=== PATIENT | male | born 1955 | race Caucasian/White ===

== ENCOUNTER 2016-06-11 07:37 | Day surgery (SDC) | payer OTHER ==
[~2016-06-11] VITALS: Ht 167.6 cm; Wt 90.0 kg
[2016-06-11] MEDS ORDERED: 0.9% Sodium Chloride 1,000 ML IV PRN (07:51)
[2016-06-11] MEDS ORDERED: Sodium Chloride LOK Flush 10 mL Syringe IV PRN (07:55)
[2016-06-11] MEDS ORDERED: fentaNYL-PF 50 mCg/mL 2 mL Inj IVPUSH PRN (07:55)
[2016-06-11] MEDS ORDERED: DEXT10TA23 PO (08:02)
[2016-06-11 08:04] VITALS: BP 117/77; PULSE 69; RESP 14
--- NOTE | 2016-06-11 09:17 | PCM.ENDCOL ---
Colonoscopy Date of Service: Jun 11, 2016 Physician Gianluca Fairbanks MD Indication for Procedure Personal history of colon polyps screening Post Procedure Dx & Findings: Polyp diverticulitis hemorrhoids Procedure Colonoscopy Prep adequate Withdrawal 15 minutes PROCEDURE IN DETAIL: After unremarkable rectal examination Olympus video colonoscope was inserted into patient's anal canal was advanced to cecum. Landmarks were identified including views of the valve and appendiceal orifice. Scope was withdrawn systematically. The mucosa of the cecum, ascending, transverse, descending, sigmoid, rectal mucosa lined with whitish, pink, smooth, glistening, normal-appearing mucosa, normal fine branching, underlying vascularity, normal haustra. The patient tolerated procedure and was transported to observation area. In the descending colon there were total 4 polyps. One was 1.5 cm which was resected completely using hot snare. Hemoclip deployed at the base due to mild oozing after the polypectomy. Complete hemostasis achieved. There were 3 other polyps which are about 2 - 4 mm in size. These were all resected completely using cold snare. In the rectum, there was a 5 mm polyp which was resected completely using hot snare. In the sigmoid colon there a few small diverticuli. In the rectum retroflexion was done which showed hemorrhoids anal canal was inspected carefully on the way out and mild hemorrhoids noted. Impression Polyps 5 status post complete removal Hemorrhoids Diverticula Personal history of colon polyps Recommendation Repeat colonoscopy 3 years Presedation Assessment Risks and Benefits Informed consent was obtained from the patient after all risks and benefits including but not limited to drug reaction, infection, pain, bleeding, perforation, as well as alternatives were discussed. Patient monitoring Continuous pulse oximetry, cardiac monitoring, blood pressure monitoring, IV access, and oxygen at 2L per nasal cannula. Periprocedural Fentanyl: Fentanyl 75mcg Incrementally Midazolam: Midazolam 3mg Incrementally Complications There were no periprocedural complications identified. Post Procedure Plan Post Procedure Recommendations 1. Restrict activities today. 2. Resume normal activities in the morning. 3. Resume medications. 4. Patient informed of normal post procedure side effects as bloating, drowsiness, blood streaking in the stool. 5. average risk CRCS. If colon polyps come back as: -Hyperplastic- can repeat colonoscopy in 10 years -Tubular adenoma- repeat colonoscopy in 5 years -Tubulovillous/villous adenoma- repeat colonoscopy in 3 years -If any dysplasia- return to clinic as soon as possible 6. Please don't hesitate to call me with any questions. Gianluca Fairbanks MD Jun 11, 2016 09:17
[2016-06-11 09:21] VITALS: BP 106/75; PULSE 65; RESP 14; O2SAT 95
[2016-06-11 09:30] VITALS: BP 113/80; PULSE 70; RESP 14; O2SAT 98
--- NOTE | 2016-06-12 11:48 | PATH ---
SURGICAL PATHOLOGY Attending Physician:Gianluca Fairbanks M.D. CASE STATUS: Signed Out PATIENT NAME: JOSEPH NAYAK PID: [id number] : 1955 DATE COLLECTED:06/11/2016 17:30 SPECIMEN: 1: Colon, Biopsy 2: Rectum, Biopsy CLINICAL HISTORY: A: DESCENDING COLON POLYPS X4 B: RECTAL POLYP X1 FINAL DIAGNOSIS: A. Descending Colon Polyp: Tubular adenoma involving multiple biopsy fragments. Hyperplastic polyp involving multiple biopsy fragments. B. Rectal Polyp: Tubular adenoma. ICD10: D12.4 GROSS DESCRIPTION: The specimen is received in two formalin filled containers labeled with the patient's name. 1). Specimen a sublabeled "descending colon polyps" and consists of multiple portions of tissue which aggregate to 1.0 x 0.5 x 0.3 CM. Specimen is entirely submitted in cassette 1A. 2). The specimen is sublabeled "rectal polyp" and consists of a 0.6 x 0.5 x 0.4 CM portion of tissue which is entirely submitted in cassette 2A. 06/11/2016 [facility] ICD-9 CODES: CPT CODES: 1: 43069 2: 46853 Electronically Signed Out Miguel Cavazos MD [facility] Pathology [facility] [address] [place] [address] Technical component performed at [facility], [address] [place] [address] [address], [place], [address]
== END 2016-06-11 23:59 | disposition home or self-care (01) ==
LOC: END 07:37
PROVIDERS: ATTEND Internal Medicine
DX: Z12.11 Encounter for screening for malignant neoplasm of colon (principal); D12.4 Benign neoplasm of descending colon; D12.8 Benign neoplasm of rectum; K57.30 Diverticulosis of large intestine without perforation or abscess without bleeding; K64.8 Other hemorrhoids; Z86.010 Personal history of colon polyps; Z79.899 Other long term (current) drug therapy; Z87.891 Personal history of nicotine dependence
CPT/HCPCS: 45385; 99153; G0500; J2250; J7030